=== PATIENT | male | born 1935 | race Caucasian/White ===

== ENCOUNTER → 2017-12-02 | Outpatient (CLI) | payer MEDICARE, OTHER ==
[~2017-12-02] MED LIST: INDO25 PO; LISHYD2025 PO; LOVA40; LOVA40 PO; MELO7.5 PO; METF500 PO; METO10 PO; OMEP20ER PO
[2017-12-05 14:52] LABS: Stool Occult Bld Immuno 1 Negative (NEGATIVE); Stool Occult Bld Immuno 2 Negative (NEGATIVE)
== END ==
LOC: OLS 23:00
PROVIDERS: Internal Medicine Gastroenterology
DX: K57.30 Diverticulosis of large intestine without perforation or abscess without bleeding (principal); Z86.010 Personal history of colon polyps
CPT/HCPCS: 82274

== ENCOUNTER 2017-12-27 14:35 | Emergency (ER) | payer MEDICARE, OTHER ==
[~2017-12-27] VITALS: Ht 177.8 cm; Wt 104.3 kg
[2017-12-27 15:20] LABS: BASOPHILS ABSOLUTE AUTO 0.14 K/mm3 (0.00-0.23); BASOPHILS PERCENT AUTO 1 % (0-2); EOSINOPHILS ABSOLUTE AUTO 0.22 K/mm3 (0.00-0.68); EOSINOPHILS PERCENT AUTO 2 % (0-6); Hematocrit 44.7 % (37.0-53.0); Hemoglobin 15.2 g/dL (13.5-17.5); IMMATURE GRAN ABSOLUTE AUTO 0.05 K/mm3 (0.00-0.10); IMMATURE GRAN PERCENT AUTO 0 % (0-1); LYMPHOCYTES PERCENT AUTO 25 % (21-46); MONOCYTES ABSOLUTE AUTO 1.02 K/mm3 (0.16-1.47); MONOCYTES PERCENT AUTO 8 % (4-13); Mean Corpuscular HGB 31.1 pg (26.0-34.0); Mean Corpuscular Volume 92 fL (80-100); Mean Platelet Volume 11.2 fL (9.1-12.4); NEUTROPHILS PERCENT AUTO 64 % (41-73); Platelet Count 235 K/mm3 (150-400); RDW Coefficient Variation 12.8 % (11.7-14.2); RDW Standard Deviation 43.3 fL (35.1-46.3); Red Blood Cell Count 4.88 M/mm3 (4.30-5.90); White Blood Cell Count 13.03 K/mm3 (4.00-11.30)
[2017-12-27 15:45] LABS: Alanine Aminotransfer (ALT/SGP 40 U/L (12-78); Albumin, Blood 3.7 g/dL (3.4-5.0); Albumin/Globulin Ratio 0.8 (0.8-1.8); Alk Phos 60 U/L (50-136); Anion Gap 8 mmol/L (6-16); Aspartate Aminotrans (AST/SGOT 16 U/L (12-37); Bilirubin, Total 0.5 mg/dL (0.1-1.0); Blood Urea Nitrogen 16 mg/dL (8-24); Bun/Creatinine Ratio 15.8 (12.0-20.0); CO2, Blood 30 mmol/L (21-32); Calcium, Blood 9.2 mg/dL (8.5-10.1); Chloride, Blood 102 mmol/L (98-108); Creatinine, Blood 1.01 mg/dL (0.60-1.20); Globulin, Blood 4.4 g/dL (2.2-4.0); Glomerular Filtration Rate >60 (60-); Glucose, Blood 176 mg/dL (70-99); Potassium, Blood 3.5 mmol/L (3.5-5.5); Sodium, Blood 140 mmol/L (136-145); Total Protein, Blood 8.1 g/dL (6.4-8.2)
== END 2017-12-27 16:28 | disposition home or self-care (01) ==
LOC: ER 14:35
PROVIDERS: Emergency Medicine
DX: S01.01XA Laceration without foreign body of scalp, initial encounter (principal); S29.9XXA Unspecified injury of thorax, initial encounter; Z79.899 Other long term (current) drug therapy; Z79.84 Long term (current) use of oral hypoglycemic drugs; W11.XXXA Fall on and from ladder, initial encounter
CPT/HCPCS: 12002; 70450; 71046; 72125; 80053; 85025; 93005; 93010; 99284

== ENCOUNTER 2018-01-03 09:49 | Emergency (ER) | payer MEDICARE, OTHER ==
[~2018-01-03] VITALS: Ht 177.8 cm; Wt 104.3 kg
== END 2018-01-03 10:33 | disposition home or self-care (01) ==
LOC: ER 09:49
DX: S01.01XD Laceration without foreign body of scalp, subsequent encounter (principal); Z79.899 Other long term (current) drug therapy; Z79.84 Long term (current) use of oral hypoglycemic drugs; F17.200 Nicotine dependence, unspecified, uncomplicated; W11.XXXD Fall on and from ladder, subsequent encounter
CPT/HCPCS: 99281

== ENCOUNTER 2019-02-25 13:25 | Day surgery (SDC) | payer MEDICARE, OTHER ==
--- NOTE | 2019-02-25 14:41 | NUR ---
PT ADMITTED TO [facility] FOR [facility]. AGREES WITH PLANNED PROCEDURE.
--- NOTE | 2019-02-25 14:50 | NUR ---
RETURNED TO [facility]. DENIES ANY NEW PAIN, NUMBNESS OR TINGLING. BANDAID TO BACK D/I.
--- NOTE | 2019-02-25 14:59 | NUR ---
WRITTEN AND VERBAL D/C INSTUCTIONS GIVENTO PT WITH STATED UNDERSTANDING.
--- NOTE | 2019-02-25 15:06 | NUR ---
DISREGARD PREVIOUS NOTE BY THIS RN, DOCUMENTED ON WRONG PATIENT.
--- NOTE | 2019-02-25 15:07 | NUR ---
PLEASE DISRGARD NOTES WRITTEN AT 1450 AND 1459, DOCUMENTED ON WRONG PATIENT.
--- NOTE | 2019-02-25 15:20 | NUR ---
PT TO STEP. DENIES ANY NEW PAIN OR NUMBNESS OR TINGLING.
--- NOTE | 2019-02-25 15:25 | NUR ---
WRITTEN AND VERBAL D/X INSTUCTIONS GIVEN TO PT AND WITH STATED UNDERSTANDING.
== END 2019-02-25 22:37 | disposition home or self-care (01) ==
LOC: ORSCMMR 13:25 → ORD 15:15 → ORSCMMR 22:37
PROVIDERS: Orthopaedic Surgery
PROC: 3E0R33Z Introduction of Anti-inflammatory into Spinal Canal, Percutaneous Approach (ICD-10-PCS; principal; 2019-02-25 15:15)
DX: M51.16 Intervertebral disc disorders with radiculopathy, lumbar region (principal); M48.062 Spinal stenosis, lumbar region with neurogenic claudication; I10 Essential (primary) hypertension; E11.9 Type 2 diabetes mellitus without complications; E78.00 Pure hypercholesterolemia, unspecified; F17.210 Nicotine dependence, cigarettes, uncomplicated; Z79.84 Long term (current) use of oral hypoglycemic drugs; Z79.899 Other long term (current) drug therapy
CPT/HCPCS: J1040

== ENCOUNTER 2019-05-23 12:24 | Day surgery (SDC) | payer MEDICARE, OTHER ==
[~2019-05-23] VITALS: Ht 177.8 cm; Wt 101.7 kg
[2019-05-23] MEDS ORDERED: AMLO5 (13:02)
--- NOTE | 2019-05-23 14:03 | NUR ---
05/23/19 1403 Trae Armenta LATE ENTRY FOR 1325 DR THORPE NOTIFED OF PT'S ELEVATED BLOOD PRESSURES. SEE VITAL SIGN RECORDS FOR READINGS. DR MALLOY ORDERED 5MG AMLODIPINE TAB PO NOW FOR ELEVATED BLOOD PRESSURE.
== END 2019-05-23 14:37 | disposition home or self-care (01) ==
LOC: ORSCSDS 12:24 → ORD 05-24 10:15
PROVIDERS: Orthopaedic Surgery
PROC: 3E0R33Z Introduction of Anti-inflammatory into Spinal Canal, Percutaneous Approach (ICD-10-PCS; principal; 2019-05-23 13:45)
DX: M54.16 Radiculopathy, lumbar region (principal); M48.061 Spinal stenosis, lumbar region without neurogenic claudication; I10 Essential (primary) hypertension; J44.9 Chronic obstructive pulmonary disease, unspecified; E11.9 Type 2 diabetes mellitus without complications; I25.10 Atherosclerotic heart disease of native coronary artery without angina pectoris; K21.9 Gastro-esophageal reflux disease without esophagitis; Z79.84 Long term (current) use of oral hypoglycemic drugs; Z79.899 Other long term (current) drug therapy; F17.210 Nicotine dependence, cigarettes, uncomplicated
CPT/HCPCS: J1040

== ENCOUNTER → 2020-10-12 | Outpatient (CLI) | payer MEDICARE, OTHER ==
[~2020-10-12] MED LIST changes: +AMLO5
== END ==
LOC: PLD 10:58 → LAB SHORT 10:58
DX: M79.89 Other specified soft tissue disorders (principal)
CPT/HCPCS: 88304

== ENCOUNTER → 2021-08-08 | Outpatient (CLI) | payer MEDICARE, OTHER ==
[2021-08-09 13:49] LABS: Stool Occult Bld Immuno 1 Negative (NEGATIVE)
== END | disposition home or self-care (01) ==
LOC: LAB SHORT 11:42
PROVIDERS: Family Medicine
DX: R19.5 Other fecal abnormalities (principal)
CPT/HCPCS: G0328

== ENCOUNTER 2021-09-11 22:37 | Inpatient (IN) | payer MEDICARE, OTHER ==
[~2021-09-11] VITALS: Ht 177.8 cm; Wt 93.8 kg
[2021-09-11] MEDS ORDERED: LISI20 PO (22:49)
[2021-09-11] MEDS ORDERED: HYDRA25 PO (22:50)
[2021-09-11] MEDS ORDERED: ALLO100 PO (22:51)
[2021-09-11] MEDS ORDERED: GABA300 PO (22:51)
[2021-09-11 22:56] LABS: BASOPHILS ABSOLUTE AUTO 0.17 K/mm3 (0.00-0.23); BASOPHILS PERCENT AUTO 1 % (0-2); EOSINOPHILS ABSOLUTE AUTO 0.56 K/mm3 (0.00-0.68); EOSINOPHILS PERCENT AUTO 4 % (0-6); Hematocrit 45.1 % (37.0-53.0); Hemoglobin 15.1 g/dL (13.5-17.5); Mean Corpuscular HGB 30.5 pg (26.0-34.0); Mean Corpuscular HGB Conc 33.5 g/dL (31.5-36.5); Mean Corpuscular Volume 91 fL (80-100); Mean Platelet Volume 10.4 fL (9.1-12.4); Platelet Count 263 K/mm3 (150-400); RDW Coefficient Variation 13.9 % (11.7-14.2); RDW Standard Deviation 46.9 fL (35.1-46.3); Red Blood Cell Count 4.95 M/mm3 (4.30-5.90); White Blood Cell Count 14.36 K/mm3 (4.00-11.30)
[2021-09-11 22:57] LABS: IMMATURE GRAN ABSOLUTE AUTO 0.04 K/mm3 (0.00-0.10); IMMATURE GRAN PERCENT AUTO 0 % (0-1); LYMPHOCYTES ABSOLUTE AUTO 6.36 K/mm3 (0.84-5.20); LYMPHOCYTES PERCENT AUTO 44 % (21-46); MONOCYTES ABSOLUTE AUTO 1.15 K/mm3 (0.16-1.47); MONOCYTES PERCENT AUTO 8 % (4-13); NEUTROPHILS ABSOLUTE AUTO 6.08 K/mm3 (1.96-9.15); NEUTROPHILS PERCENT AUTO 42 % (41-73)
[2021-09-11 23:11] LABS: International Normalized Ratio 0.96; Prothrombin Time Results 10.1 Sec (9.7-11.5)
[2021-09-11 23:22] LABS: Alanine Aminotransfer (ALT/SGP 38 U/L (12-78); Albumin, Blood 3.7 g/dL (3.4-5.0); Albumin/Globulin Ratio 0.9 (0.8-1.8); Alk Phos 58 U/L (50-136); Anion Gap 6 mmol/L (6-16); Aspartate Aminotrans (AST/SGOT 23 U/L (12-37); Bilirubin, Total 0.5 mg/dL (0.1-1.0); Blood Urea Nitrogen 14 mg/dL (8-24); CO2, Blood 30 mmol/L (21-32); Calcium, Blood 9.4 mg/dL (8.5-10.1); Chloride, Blood 103 mmol/L (98-108); Globulin, Blood 4.1 g/dL (2.2-4.0); Glomerular Filtration Rate >60 (60-); Glucose, Blood 143 mg/dL (70-99); Magnesium, Blood 2.1 mg/dL (1.6-2.4); Potassium, Blood 3.7 mmol/L (3.5-5.5); Sodium, Blood 139 mmol/L (136-145); Total Protein, Blood 7.8 g/dL (6.4-8.2); Troponin I <0.015 ng/mL (0.000-0.040)
[2021-09-12 00:37] LABS: SARS-Cov-2 (COVID-19) PCR, MMC NEGATIVE (NEGATIVE)
[2021-09-12 00:47] LABS: CHOL/HDL RATIO 7.6; Cholesterol 235 mg/dL (50-200); HDL Cholesterol 31 mg/dL (>39); LDL/HDL RATIO Unable to Calculate; Low Density Lipoprotein Chol Unable to Calculate mg/dL (0-110); Triglycerides 491 mg/dL (30-160); Very Low Density Lipoprot Chol Unable to Calculate mg/dL (6-32)
--- NOTE | 2021-09-12 01:40 | NUR ---
ICU ADMISSION: PT ARRIVES ADMIT FROM THE ED. PER PREVIOUS RN: PT HAD BEEN HAVING GENERALIZED CP x1WK. TONIGHT WHILE @ REST, CP BECAME WORSE & HE HAD SOME LIGHTHEADEDNESS. UPON ARRIVAL PT WAS HYPTERNSIVE W/ STERNAL CP 8/10. GIVEN BRILINTA, & 325 ASA. HEPARIN & NITRO gtt STARTED IN ER. UPON ARRIVAL TO ICU, PT ABLE TO SPEAK IN FULL SENTENCES, LS CLEAR T/O, 98% ON RA. HR 60s, NSR W/ INTERMITTENT MULTIFOCAL PVCs. PT DENIES ANY CP. NITRO 15mcg/min, HEPARIN 15u/kg/hr. PLAN FOR ECHO & CARDIOLOGY CONSULT IN THE AM.
--- NOTE | 2021-09-12 04:00 | NUR ---
PT CONTINUES TO DENY RETURN OF HIS CP. GTT RATES UNCHANGED. HR 58-60, NSR. SBP STABLE. 96% ON RA. PT UNABLE TO SLEEP; LIGHTS DIMMED, DOOR CLOSED, PT ENCOURAGED TO TRY TO REST. CALL LIGHT W/ IN REACH.
[2021-09-12 04:28] LABS: Hematocrit 40.3 % (37.0-53.0); Hemoglobin 13.2 g/dL (13.5-17.5); Mean Corpuscular HGB 30.1 pg (26.0-34.0); Mean Corpuscular HGB Conc 32.8 g/dL (31.5-36.5); Mean Corpuscular Volume 92 fL (80-100); Mean Platelet Volume 10.7 fL (9.1-12.4); Platelet Count 223 K/mm3 (150-400); RDW Standard Deviation 47.7 fL (35.1-46.3); Red Blood Cell Count 4.39 M/mm3 (4.30-5.90); White Blood Cell Count 12.39 K/mm3 (4.00-11.30)
[2021-09-12 04:58] LABS: Anion Gap 5 mmol/L (6-16); Blood Urea Nitrogen 12 mg/dL (8-24); Bun/Creatinine Ratio 12.3 (12.0-20.0); CO2, Blood 27 mmol/L (21-32); Calcium, Blood 8.6 mg/dL (8.5-10.1); Chloride, Blood 106 mmol/L (98-108); Creatinine, Blood 0.98 mg/dL (0.60-1.20); Glomerular Filtration Rate >60 (60-); Glucose, Blood 112 mg/dL (70-99); Sodium, Blood 138 mmol/L (136-145)
--- NOTE | 2021-09-12 05:57 | NUR ---
UPDATE: CRITICAL PTT. CALLED PHARMACIST TO DISCUSS CRITICAL PTT OF >139. LAB WAS DRAWN BEFORE THE SCHEDULED TIME & PHARMACIST BELIEVES THE RESULTS TO BE INCORRECT. NEW ORDERS PLACED TO HAVE PTT REDRAWN. MOP HANDLE ASSEMBLER MADE AWARE. LAB CALLED TO COME DRAW BLOOD SHORTLY
--- NOTE | 2021-09-12 06:09 | NUR ---
SHIFT SUMMARY: NO ACUTE CHANGES OVERNIGHT. PT WAS UNABLE TO SLEEP MUCH, IF AT ALL. CP IS STILL RESOLVED AFTER NITRO GTT. HR 60s, SINUS W/ INTERMITTENT MULTIFOCAL PVCs. SBP low 100s. 98% ON RA. PT ABLE TO USE THE URINAL INDEPENDENTLY. TROPONIN INITIALLY NEG, NOW TRENDING UPWARDS @ 2.7. PLAN FOR CARDIOLOGY CONSULT THIS MORNING. ATTEMPTED TO CALL ANSWERING SERVICE SEVERAL TIMES W/ BUSY SIGNAL. WILL DISCUSS THIS W/ AM RN TO CALL CONSULT.
[2021-09-12 06:50] LABS: BASOPHILS ABSOLUTE MAN 0.12 K/mm3 (0.00-0.23); BASOPHILS PERCENT MAN 1 % (0-2); EOSINOPHILS ABSOLUTE MAN 0.24 K/mm3 (0.00-0.68); EOSINOPHILS PERCENT MAN 2 % (0-6); LYMPHOCYTES ABSOLUTE MAN 5.82 K/mm3 (0.84-5.20); LYMPHOCYTES PERCENT MAN 47 % (21-46); MONOCYTES ABSOLUTE MAN 0.86 K/mm3 (0.16-1.47); MONOCYTES PERCENT MAN 7 % (4-13); NEUTROPHILS ABSOLUTE MAN 5.32 K/mm3 (1.96-9.15); SEG NEUTROPHILS PERCENT MAN 43 % (41-73); TOTAL CELLS COUNTED 100
--- NOTE | 2021-09-12 07:13 | NUR ---
ASSUMED CARE: PT LAYING IN BED, AWAKE, TALKING TO STAFF. ALERT AND ORIENTED, TALKING TO STAFF. DENIES CHEST PAIN ON 15MCG OF NITRO. HEPARIN GTT RUNNING, RATE VERIFIED WITH NIGHT RN. MESSAGE LEFT WITH A.S. FOR DR LIPSCOMB. PT ASKED FOR ASSISTANCE WITH PHONE TO CALL HIS . NO FURTHER NEEDS AT THIS TIME.
--- NOTE | 2021-09-12 07:32 | NUR ---
CALL TO NURSING DOUBLE BOTTOM DRIVER TO MAKE THEM AWARE THAT PT HAS ECHO ORDERED SO THAT ONCALL TECH CAN BE NOTIFIED.
--- NOTE | 2021-09-12 08:37 | NUR ---
DR PEREZ CAME TO SEE PT AND PLANS FOR FIXED ASSETS ACCOUNTANT EARLY AFTERNOON. CALL TO PT'S TO UPDATE HER ON PLAN. PT CONTINUES TO DENY CHEST PAIN. PT DENIES NEEDS OR CONCERNS AT THIS TIME.
--- NOTE | 2021-09-12 09:32 | NUR ---
COVID SWAB COMPLETED AND SENT TO LAB FOR ANALYSIS. TELEVISION PRODUCTION TECHNICIAN AT BEDSIDE AT THIS TIME.
--- NOTE | 2021-09-12 09:57 | NUR ---
Echocardiogram completed.
[2021-09-12 10:03] LABS: SARS-Cov-2 (COVID-19) PCR, MMC NEGATIVE (NEGATIVE)
--- NOTE | 2021-09-12 12:30 | NUR ---
PT TAKEN TO [facility]ART CENTER VIA BED BY MEDICAL NUMERICAL CONTROL OPERATOR STAFF
--- NOTE | 2021-09-12 14:13 | NUR ---
PT RETURNED FROM [facility] SERVICES LIBRARIAN WITH TR BAND IN PLACE, 20CC IN PLACE. SLIGHT HEMATOMA TO LEFT OF TR BAND THAT HEART CENTER STAFF MARKED AND NOTED. 2CC REMOVED DUE TO PT HAVING PURPLE FINGERS AND NO READ ON BIOX. PT NOW AT 95% ON RA. CALL TO PT'S TO GIVE HER AN UPDATE. NO ACUTE NEEDS AT THIS TIME.
--- NOTE | 2021-09-12 18:06 | NUR ---
SHIFT SUMMARY: PT'S TR BAND IS DEFLATED AND REMAINS ON FOR 1 MORE HOUR. SMALL AMOUNT OF BLEEDING AND BRUISING AT PUNCTURE SITE BUT HEMATOMA HAS NOT GROWN SINCE INITIAL PRESENTATION. PT DENIES CHEST PAIN. HAS BEEN CALLED WITH UPDATE. POSSIBLE DC TOMORROW IF ALL GOES WELL THIS EVENING. NO ACUTE NEEDS OR CONCERNS AT THIS TIME.
--- NOTE | 2021-09-12 18:46 | NUR ---
TR BAND REMOVED WITH SOME BRUISING AND SCANT BLEEDING FROM SITE. PT DENIES CHEST PAIN OR FURTHER NEEDS AT THIS TIME.
--- NOTE | 2021-09-12 20:00 | NUR ---
ASSUMING PT CARE: PT RESTING IN BED, WATCHING TV. A&O, APPROPRIATELY INTERACTIVE & PLEASANT. PT IS S/P CREDIT REVIEW ANALYST STENT PLACEMENT TO RCA. R RADIAL SITE IS NONTENDER, DRESSED W/ CLEAR DRESSING. SM AMT OF BLOOD LEAKING. APPEARS TO HAVE SOME BRUISING AROUND THE SITE, HOWEVER IT IS UNCHANGED SINCE HIS ARRIVAL FROM CREDIT REVIEW ANALYST PER DAY SHIFT RN. DISTAL CSM INTACT. ++RADIAL PULSE. PT DENIES RETURN OF HIS CP SINCE ARRIVAL TO ICU. HR mid 50s-60s, SINUS RHYTHM. PLAN FOR POSSIBLE DC HOME TOMORROW.
--- NOTE | 2021-09-13 | NUR ---
PT RESTING W/ EYES CLOSED, RR EVEN & UNLABORED. HR SINUS WALESKA IN THE MID 50s, SBP STABLE. PT AWAKES CONFUSED TO NURSING CARE BUT IS EASILY REORIENTED.
--- NOTE | 2021-09-13 04:00 | NUR ---
PT RESTING SOUDNLY W/ EYES CLOSED. WHILE ASLEEP PT NOTED TO BECOME MILDLY BRADYCARDIC IN THE MID 40s; HE CONTINUES TO BE IN A SINUS RHYTHM. PERIODS OF SLEEP APNEA W/ HEAVY SNORING, @ TIMES SATS DEC TO THE 70s & QUICKLY RETURN TO 90%. 3L/min PLACED FOR SUPPORTIVE CARE WHILE ASLEEP.
--- NOTE | 2021-09-13 09:33 | NUR ---
AM NOTE... ASSUMED CARE OF PT AT 0700, PT IS A&Ox4 AND VERY POINT LAY IRA. PT IS S/P STENT PLACEMENT WITH A RIGHT RADIAL SITE. THE SITE HAS NO SWELLING BLEEDING OR HEMATOMA NOTED. PT DENIES ANY CHEST PAIN. L/S CLEAR IN THE UPPER LOBES DIM IN THE LOWER. PT IS ON RA WITH O2 SATS >90%. PT IS IN SR/SB IN THE 50'S-60'S. BP IS HYPERTENSIVE THIS AM WITH SBPs IN THE 160'S-190'S, PT WAS RE-STARTED ON HIS HOME HTN MEDICATIONS. NO EDEMA NOTED ON ASSESSMENT. BT PRESENT AND HYPOACTIVE, ABD IS SOFT AND NONTENDER TO PALP. PT IS VOIDING USING THE URINAL. DR. PEREZ AT THE BEDSIDE THIS AM FOR ASSESSMENT, PER CARDIOLOGY PT IS OKAY TO D/C HOME, THIS RN CALLED [facility] PROVIDER TO NOTIFY THEM OF THE CLEARENCE TO D/C HOME FROM CARDIOLOGY. CALL LIGHT IN REACH WILL CONTINUE TO MONITOR.
[2021-09-13] MEDS ORDERED: ASPI81CH PO (13:03)
[2021-09-13] MEDS ORDERED: ATOR80 PO (13:04)
[2021-09-13] MEDS ORDERED: Plavix75 MG PO (13:05)
[2021-09-13] MEDS ORDERED: GEMF600 PO (13:06)
--- NOTE | 2021-09-13 13:33 | NUR ---
Per Dr. Peoples discharge appropriate for today. Spoke with patient and he is aware of discharge and does not oppose. Patient's neighbor (friend of family) is providing transportation to their home. Patient states he does not need assistance with walking and does not require any DME at this time. Patient states he understands his medications and schedule and has a medication organizer that his takes care of. Patient knows to contact his PCP if he has any questions regarding medication management. Patient states he has a safe home environment and his helps him where needed and they have a family friend (Joey) who assists when needed. Pt is still able to drive. No barriers to discharge or safety concerns identified.
--- NOTE | 2021-09-13 13:39 | NUR ---
PT D/C HOME... PT D/C HOME, ALL HIS BELONGINGS PACKED AND SENT WITH THE PT. NEW MEDICATION INFORMATION/EDUCATION WAS PROVIDED VERBALLY AND WRITTEN TO THE PT. PT DENIES ANY CHEST PAIN/PRESSURE AT THIS TIME. PT WAS ESCORTED TO THE DOOR VIA W/C. THE PT'S NEW MEDICATIONS WERE SENT TO THE PHARMACY OF HIS CHOICE.
== END 2021-09-13 13:15 | disposition home or self-care (01) | DRG 247 ==
LOC: ER 22:37 → ICUW 09-12 00:27 → ICUE 09-12 00:27
PROVIDERS: Emergency Medicine; Internal Medicine Cardiovascular Disease; ADMIT Family Medicine
PROC: 027035Z Dilation of Coronary Artery, One Artery with Two Drug-eluting Intraluminal Devices, Percutaneous Approach (ICD-10-PCS; principal; 2021-09-12)
PROC: B2111ZZ Fluoroscopy of Multiple Coronary Arteries using Low Osmolar Contrast (ICD-10-PCS; 2021-09-12)
DX: I21.4 Non-ST elevation (NSTEMI) myocardial infarction (principal); I16.1 Hypertensive emergency; E11.9 Type 2 diabetes mellitus without complications; E78.5 Hyperlipidemia, unspecified; I10 Essential (primary) hypertension; Z20.822 Contact with and (suspected) exposure to COVID-19; E78.1 Pure hyperglyceridemia; R00.1 Bradycardia, unspecified; Z90.49 Acquired absence of other specified parts of digestive tract; Z98.890 Other specified postprocedural states; Z90.5 Acquired absence of kidney; Z79.899 Other long term (current) drug therapy; D72.828 Other elevated white blood cell count; F17.210 Nicotine dependence, cigarettes, uncomplicated; E66.9 Obesity, unspecified; Z68.29 Body mass index [BMI] 29.0-29.9, adult
CPT/HCPCS: 36415; 71045; 76937; 80048; 80053; 80061; 82947; 83036; 83735; 83880; 84443; 84484; 85025; 85347; 85610; 85730; 93005; 93010; 93454; 96365; 96368; 96375; 96376; 99152; 99153; 99285-25; A9270; C1725; C1769; C1874; C1887; C1894; C8929; C9600; J0461; J1644; J2001; J2250; J2405; J3010; J7030; J7040; J7050; Q9957; Q9967; U0004

== ENCOUNTER 2021-11-23 13:25 | Inpatient (IN) | payer MEDICARE ==
[~2021-11-23] VITALS: Ht 182.9 cm; Wt 85.0 kg
[~2021-11-23 13:25] MED LIST changes: +ALLO100 PO; +ASPI81CH PO; +GABA300 PO; +HYDRA25 PO; +LISI20 PO; +Plavix75 MG PO
[2021-11-23 15:02] LABS: BASOPHILS ABSOLUTE AUTO 0.19 K/mm3 (0.00-0.23); BASOPHILS PERCENT AUTO 1 % (0-2); EOSINOPHILS ABSOLUTE AUTO 0.25 K/mm3 (0.00-0.68); EOSINOPHILS PERCENT AUTO 1 % (0-6); Hematocrit 45.4 % (37.0-53.0); Hemoglobin 15.2 g/dL (13.5-17.5); IMMATURE GRAN ABSOLUTE AUTO 0.08 K/mm3 (0.00-0.10); IMMATURE GRAN PERCENT AUTO 0 % (0-1); LYMPHOCYTES ABSOLUTE AUTO 3.87 K/mm3 (0.84-5.20); LYMPHOCYTES PERCENT AUTO 21 % (21-46); MONOCYTES ABSOLUTE AUTO 1.13 K/mm3 (0.16-1.47); MONOCYTES PERCENT AUTO 6 % (4-13); Mean Corpuscular HGB Conc 33.5 g/dL (31.5-36.5); Mean Corpuscular Volume 90 fL (80-100); Mean Platelet Volume 10.5 fL (9.1-12.4); NEUTROPHILS ABSOLUTE AUTO 12.75 K/mm3 (1.96-9.15); NEUTROPHILS PERCENT AUTO 70 % (41-73); Platelet Count 360 K/mm3 (150-400); RDW Coefficient Variation 13.2 % (11.7-14.2); RDW Standard Deviation 43.2 fL (35.1-46.3); Red Blood Cell Count 5.07 M/mm3 (4.30-5.90); White Blood Cell Count 18.27 K/mm3 (4.00-11.30)
[2021-11-23 15:24] LABS: Albumin, Blood 3.7 g/dL (3.4-5.0); Albumin/Globulin Ratio 0.9 (0.8-1.8); Bilirubin, Total 0.8 mg/dL (0.1-1.0); Bun/Creatinine Ratio 13.3 (12.0-20.0); Calcium, Blood 10.9 mg/dL (8.5-10.1); Creatinine, Blood 1.35 mg/dL (0.60-1.20); Globulin, Blood 4.2 g/dL (2.2-4.0); Potassium, Blood 3.4 mmol/L (3.5-5.5); Total Protein, Blood 7.9 g/dL (6.4-8.2)
[2021-11-23] MEDS ORDERED: ZESTRIL40 M1 PO (17:13)
[2021-11-23] MEDS ORDERED: HYDCHL25 PO (17:14)
[2021-11-23] MEDS ORDERED: AMLODIPINE BESYL5 MG PO (17:14)
[2021-11-23] MEDS ORDERED: OMEP20ER PO (17:15)
[2021-11-23] MEDS ORDERED: ALLO100 PO (17:15)
[2021-11-23] MEDS ORDERED: GABA300 PO (17:16)
[2021-11-23] MEDS ORDERED: CLOP75 PO (17:16)
[2021-11-23] MEDS ORDERED: Aspir 8181 MG PO (17:16)
[2021-11-23] MEDS ORDERED: MOBIC15 MG PO (17:16)
[2021-11-23] MEDS ORDERED: METF500 PO (17:16)
[2021-11-23] MEDS ORDERED: PANT40 PO (17:17)
--- NOTE | 2021-11-23 23:40 | NUR ---
ADMIT NOTE HANDOFF RECEIVED FROM STORAGE BATTERY INSPECTOR AND TESTER VAMSI. PT ARRIVED TO FLOOR VIA GURNEY. PT PUT ON LOW INTERMITTENT SUCTION THROUGH NG TUBE PLACED IN ER. PERSONAL POSSESSIONS WITH PT. TELEMETRY IN PLACE. IV FLUIDS INFUSING ORDERED. 'S HARDCOPY ORDERS REVIEWED BY TWO RN'S. CALL BUTTON WITHIN REACH. PT ORIENTED TO UNIT.
--- NOTE | 2021-11-24 04:30 | NUR ---
SHIFT SUMMARY ADMITTED THIS SHIFT FOR SBO. FULL CODE. NG TUBE IN PLACE AND DRAINING DARK GREEN SUBSTANCE. TELEMETRY: NSR W/PAC'S @ 65 BPM. HE HAS NO N/V SINCE ARRIVING ON THIS FLOOR. HE ASKS CONTINUOUSLY TO HAVE HIS NG TUBE REMOVED, BUT HE CAN BE REDIRECTED AND IS QUITE PLEASANT. SURGICAL & AND GI CONSULTS HAVE BEEN CONTACTED.
[2021-11-24 04:54] LABS: BASOPHILS ABSOLUTE AUTO 0.16 K/mm3 (0.00-0.23); BASOPHILS PERCENT AUTO 1 % (0-2); EOSINOPHILS ABSOLUTE AUTO 0.36 K/mm3 (0.00-0.68); EOSINOPHILS PERCENT AUTO 3 % (0-6); Hematocrit 40.6 % (37.0-53.0); Hemoglobin 13.2 g/dL (13.5-17.5); IMMATURE GRAN ABSOLUTE AUTO 0.05 K/mm3 (0.00-0.10); IMMATURE GRAN PERCENT AUTO 0 % (0-1); LYMPHOCYTES ABSOLUTE AUTO 4.27 K/mm3 (0.84-5.20); LYMPHOCYTES PERCENT AUTO 30 % (21-46); MONOCYTES ABSOLUTE AUTO 1.18 K/mm3 (0.16-1.47); MONOCYTES PERCENT AUTO 8 % (4-13); Mean Corpuscular HGB Conc 32.5 g/dL (31.5-36.5); Mean Corpuscular Volume 92 fL (80-100); Mean Platelet Volume 10.1 fL (9.1-12.4); NEUTROPHILS ABSOLUTE AUTO 8.25 K/mm3 (1.96-9.15); NEUTROPHILS PERCENT AUTO 58 % (41-73); Platelet Count 283 K/mm3 (150-400); RDW Coefficient Variation 13.2 % (11.7-14.2); RDW Standard Deviation 45.4 fL (35.1-46.3); White Blood Cell Count 14.27 K/mm3 (4.00-11.30)
[2021-11-24 05:35] LABS: Albumin, Blood 3.2 g/dL (3.4-5.0); Anion Gap 9 mmol/L (6-16); Blood Urea Nitrogen 22 mg/dL (8-24); Bun/Creatinine Ratio 14.1 (12.0-20.0); CO2, Blood 33 mmol/L (21-32); Calcium, Blood 9.3 mg/dL (8.5-10.1); Chloride, Blood 103 mmol/L (98-108); Creatinine, Blood 1.56 mg/dL (0.60-1.20); Glomerular Filtration Rate 42 (60-); Glucose, Blood 95 mg/dL (70-99); Phosphorus, Blood 3.5 mg/dL (2.5-4.9); Sodium, Blood 145 mmol/L (136-145)
--- NOTE | 2021-11-24 11:43 | NUR ---
This morning before going up to visit Jose Guadalupe in his [facility] room 335, I called and spoke with his Mary. She states Jose Guadalupe is primarily independent in their two story home. The home has a steep drive way, and Jose Guadalupe walks up and down daily to check their mailbox. He does not use any dme, still drives, and his helps with medication management using a pill organizer. There is no preference on agency for Home Health Services. When I went to visit the patient in his room, he was alert and very pleasant. He told me he had a heart attack in September and since then has not been feeling well. He confirms hes independent in their home and does all the errands as his prefers not to leave their home due to covid concerns. He states if his is unable to help with discharge transportation, they have family, friends in the area that provide support if needed. He has never been to a SNF, but states his preference would be [facility]. I informed patient and his of the no visitor policy and gave them both my work cell phone for direct communication regarding care coordination or questions.
--- NOTE | 2021-11-24 17:08 | NUR ---
11/24/21 1708 Francis [facility] PATIENT DETERMINED TO BE ASA APPROPRIATE FOR PROPOFOL SEDATION PRIOR TO START OF PROCEDURE BY DR. VALENCIA Bite Block Placed. History, Chart, Medications and Allergies reviewed before start of procedure. MONITOR INTACT WITH CONTINUOUS PULSE OXIMETRY AND INTERMITTENT BP. 3-LEAD EKG REVIEWED WITH PHYSICIAN PRIOR TO START OF PROCEDURE. Patient to ENDO 1. O2 VIA N/C INTACT THROUGHOUT SEDATION/PROCEDURE.
--- NOTE | 2021-11-24 17:15 | NUR ---
SHIFT SUMMARY PT AXO, PLEASANT AND COOPERATIVE WITH CARE THOUGH [place]. PT HAD NG TUBE THOUGHOUT THE SHIFT WITH 250 ML OUT. VSS PT ON TELE, SINUS WALESKA AT START OF SHIFT. PT COMPLAINED OF THROAT PAIN AND WAS EAGER TO HAVE NG TUBE REMOVED. CHLORASEPIC SPRAY ADMINISTERED PER ORDERS. IV PATENT AND INFUSING PER EMAR. PT ALSO EAGER TO DRINK WATER. BED IN LOW POSITION, CALL LIGHT WITHIN REACH. PT AT DAY SURGERY AT THIS TIME.
--- NOTE | 2021-11-24 19:00 | NUR ---
PATIENT RETURNED FROM DAY SURGERY. REPLACEMENT OF NG TUBE WILL BE PASSED ON TO TOBACCO SCRAP SIFTER. THIS NURSE SPOKE WITH DR LOCKWOOD. SBAR GIVEN. DR LOCKWOOD STATES THAT SHE WILL SPEAK WITH ABOUT THIS PATIENT WHO IS AWAITING SURGICAL CONSULT AT THIS TIME WELL.
--- NOTE | 2021-11-25 00:59 | NUR ---
NG TUBE INSERTION W/ASSIST FROM PRIMARY RN ROHAN VASQUEZ. WILL NOTIFY IMAGING FOR XRAY TO VERIFY PLACEMENT. PT TOLERATED PROCEDURE WELL.
--- NOTE | 2021-11-25 06:30 | NUR ---
SHIFT SUMMARY: PT IS A/OX3-4. HE HAS REMAINED NPO D/T A BOWEL OBSTRUCTION. HIS NGT WAS REPLACED AROUND MN AND HAD MODERATE BILE OUTPUT. SURGICAL CONSULT IS IN. PT HAS NO C/O OF NAUSEA, DISTENTION, OR PAIN; BOWEL TONES ARE PRESENT. CALL LIGHT IS WITHIN REACH AND WE'LL CONTINUE TO MONITOR.
[2021-11-25 07:55] LABS: BASOPHILS ABSOLUTE AUTO 0.11 K/mm3 (0.00-0.23); BASOPHILS PERCENT AUTO 1 % (0-2); EOSINOPHILS ABSOLUTE AUTO 0.18 K/mm3 (0.00-0.68); EOSINOPHILS PERCENT AUTO 1 % (0-6); Hematocrit 38.3 % (37.0-53.0); Hemoglobin 12.4 g/dL (13.5-17.5); IMMATURE GRAN ABSOLUTE AUTO 0.06 K/mm3 (0.00-0.10); IMMATURE GRAN PERCENT AUTO 0 % (0-1); LYMPHOCYTES ABSOLUTE AUTO 3.56 K/mm3 (0.84-5.20); LYMPHOCYTES PERCENT AUTO 20 % (21-46); MONOCYTES ABSOLUTE AUTO 1.32 K/mm3 (0.16-1.47); MONOCYTES PERCENT AUTO 7 % (4-13); Mean Corpuscular HGB 29.6 pg (26.0-34.0); Mean Corpuscular HGB Conc 32.4 g/dL (31.5-36.5); Mean Corpuscular Volume 91 fL (80-100); Mean Platelet Volume 10.6 fL (9.1-12.4); NEUTROPHILS ABSOLUTE AUTO 13.03 K/mm3 (1.96-9.15); NEUTROPHILS PERCENT AUTO 71 % (41-73); Platelet Count 264 K/mm3 (150-400); RDW Coefficient Variation 13.3 % (11.7-14.2); RDW Standard Deviation 44.4 fL (35.1-46.3); Red Blood Cell Count 4.19 M/mm3 (4.30-5.90); White Blood Cell Count 18.26 K/mm3 (4.00-11.30)
[2021-11-25 08:32] LABS: Alanine Aminotransfer (ALT/SGP 46 U/L (12-78); Alk Phos 61 U/L (50-136); Anion Gap 8 mmol/L (6-16); Aspartate Aminotrans (AST/SGOT 31 U/L (12-37); Bilirubin, Total 1.3 mg/dL (0.1-1.0); Blood Urea Nitrogen 19 mg/dL (8-24); Bun/Creatinine Ratio 16.8 (12.0-20.0); CO2, Blood 26 mmol/L (21-32); Calcium, Blood 8.7 mg/dL (8.5-10.1); Chloride, Blood 107 mmol/L (98-108); Creatinine, Blood 1.13 mg/dL (0.60-1.20); Globulin, Blood 2.9 g/dL (2.2-4.0); Glomerular Filtration Rate >60 (60-); Glucose, Blood 85 mg/dL (70-99); Potassium, Blood 3.5 mmol/L (3.5-5.5); Sodium, Blood 141 mmol/L (136-145); Total Protein, Blood 5.9 g/dL (6.4-8.2)
[2021-11-25 09:22] LABS: Carcinoembryonic Antigen 2.1 ng/mL (0.0-3.0)
[2021-11-25 09:23] LABS: Cancer Antigen 19-9 <2.0 U/mL (2.0-37.0)
--- NOTE | 2021-11-25 18:33 | NUR ---
SHIFT SUMMARY- PT ALERT AND ORIENTED, CURRENTLY IN BED WITH THE CALL LIGHT IN REACH, BED AND CHAIR ALARMS SET TO PREVENT PT FROM ACCIDENTALLY PULLING OUT NG TUBE OR IV, PT OFTEN FORGETS TO CALL FOR ASSISTANCE TO TRANSFER FROM THE BED TO THE CHAIR AND BACK. PT HAS C/O PAIN IN HIS THROAT TODAY MEDICATED WITH CEPACOL SORE THROAT SPRAY, PT STATED IT WAS MUCH BETTER AFTER THAT. PT NG TUBE IN PLACE CONNECTED TO LOW INTERMITTENT SUCTION THAT IS PRODUCING COPIOUS AMOUNTS OF GREEN BILE, 2.5 L SINCE THE START OF THE SHIFT. PT HAD ONE C/O NAUSEA TODAY MEDICATED WITH ZOFRAN, PT STATED IT WAS WELL MANAGED. SPOKE TO DR ABARCA TODAY, THEY ARE CURRENTLY WAITING FOR THE BIOPSY RESULTS TO COME BACK, DEPENDING ON THE RESULTS THE PT MAY NEED TO BE TRANSFERED TO [facility] FOR A POSSIBLE SURGERY, ALL IS UNCERTAIN AT THIS TIME. PT ON TELE RUNNING NSR AT 63 THIS MORNING, HE DID WALESKA DOWN TO 47 AT ONE POINT TODAY WHILE TAKING A NAP, DR MOODY. PT CURRENTLY HAS NO S&S OF DISTRESS, WILL CTM AND PASS ON TO NIGHT RN IN BEDSIDE REPORT.
[2021-11-25] MEDS ORDERED: GEMF600 PO (18:39)
[2021-11-25] MEDS ORDERED: ATOR80 PO (18:40)
--- NOTE | 2021-11-25 19:00 | NUR ---
RECIEVED A CALL FROM TELE- PT HR WALESKA DOWN TO 42 THIS TIME. PT DENIES ANY CHEST PAIN OR PRESSURE OR SHORTNESS OF BREATH. CALLED DR ABARCA AND SPOKE TO HIM ABOUT THIS EVENT. HE IS AWARE. NO NEW ORDERS AT THIS TIME. CONTINUE CARDIAC MONITORING AND IF THE EVENTS CONTINUE THE PT MAY NEED A CARDIOLOGY CONSULT.
[2021-11-26 04:52] LABS: BASOPHILS ABSOLUTE AUTO 0.16 K/mm3 (0.00-0.23); BASOPHILS PERCENT AUTO 1 % (0-2); EOSINOPHILS ABSOLUTE AUTO 0.54 K/mm3 (0.00-0.68); EOSINOPHILS PERCENT AUTO 4 % (0-6); Hematocrit 38.4 % (37.0-53.0); Hemoglobin 12.6 g/dL (13.5-17.5); IMMATURE GRAN ABSOLUTE AUTO 0.05 K/mm3 (0.00-0.10); IMMATURE GRAN PERCENT AUTO 0 % (0-1); LYMPHOCYTES ABSOLUTE AUTO 3.09 K/mm3 (0.84-5.20); LYMPHOCYTES PERCENT AUTO 20 % (21-46); MONOCYTES ABSOLUTE AUTO 1.13 K/mm3 (0.16-1.47); MONOCYTES PERCENT AUTO 7 % (4-13); Mean Corpuscular HGB 30.1 pg (26.0-34.0); Mean Corpuscular HGB Conc 32.8 g/dL (31.5-36.5); Mean Corpuscular Volume 92 fL (80-100); Mean Platelet Volume 10.6 fL (9.1-12.4); NEUTROPHILS ABSOLUTE AUTO 10.37 K/mm3 (1.96-9.15); NEUTROPHILS PERCENT AUTO 68 % (41-73); Platelet Count 249 K/mm3 (150-400); RDW Coefficient Variation 13.3 % (11.7-14.2); Red Blood Cell Count 4.18 M/mm3 (4.30-5.90); White Blood Cell Count 15.34 K/mm3 (4.00-11.30)
[2021-11-26 05:20] LABS: Bun/Creatinine Ratio 17.2 (12.0-20.0); Calcium, Blood 8.8 mg/dL (8.5-10.1); Creatinine, Blood 1.34 mg/dL (0.60-1.20); Potassium, Blood 3.4 mmol/L (3.5-5.5)
--- NOTE | 2021-11-26 05:35 | NUR ---
SHIFT SUMMARY: PT IS A/OX3-4. NGT CONTINUES TO PUT OUT MODERATE OUTPUT. CANISTERS CHANGED AND OUTPUT HAS BEEN DOCUMENTED. PER TELE PT INTERMITTENTLY BRADYs DOWN IN THE 40s WHILE SLEEPING--MD IS AWARE. PT DID NOT HAVE ANY C/O OF PAIN OR NAUSEA. HE USES THE URINAL IN BED AND HAS BEEN USING CALL LIGHT APPROPRIATELY. BED ALARM IS SET D/T CONTINUOUS FLUIDS AND NGT TO LIWS.
--- NOTE | 2021-11-26 13:20 | NUR ---
I went to visit the patient in his [facility] room 335. He was alert and pleasant. He confirmed that clinical staff is awaiting his biopsy results. He says he calls his throughout the day as he is given updates.
[2021-11-27 04:09] LABS: BASOPHILS ABSOLUTE AUTO 0.17 K/mm3 (0.00-0.23); BASOPHILS PERCENT AUTO 1 % (0-2); EOSINOPHILS ABSOLUTE AUTO 0.35 K/mm3 (0.00-0.68); EOSINOPHILS PERCENT AUTO 3 % (0-6); Hematocrit 40.6 % (37.0-53.0); Hemoglobin 13.2 g/dL (13.5-17.5); IMMATURE GRAN ABSOLUTE AUTO 0.04 K/mm3 (0.00-0.10); IMMATURE GRAN PERCENT AUTO 0 % (0-1); LYMPHOCYTES ABSOLUTE AUTO 3.55 K/mm3 (0.84-5.20); LYMPHOCYTES PERCENT AUTO 26 % (21-46); MONOCYTES PERCENT AUTO 7 % (4-13); Mean Corpuscular HGB Conc 32.5 g/dL (31.5-36.5); Mean Corpuscular Volume 92 fL (80-100); Mean Platelet Volume 10.7 fL (9.1-12.4); NEUTROPHILS ABSOLUTE AUTO 8.59 K/mm3 (1.96-9.15); NEUTROPHILS PERCENT AUTO 63 % (41-73); Platelet Count 267 K/mm3 (150-400); RDW Coefficient Variation 13.2 % (11.7-14.2); RDW Standard Deviation 45.3 fL (35.1-46.3)
[2021-11-27 04:28] LABS: Bun/Creatinine Ratio 19.8 (12.0-20.0); Calcium, Blood 8.9 mg/dL (8.5-10.1); Creatinine, Blood 1.26 mg/dL (0.60-1.20); Potassium, Blood 3.4 mmol/L (3.5-5.5)
--- NOTE | 2021-11-27 05:37 | NUR ---
PT IS A/OX4. NGT OUTPUT REMAINS HIGH AVERAGE AROUND 2L THE LAST FEW SHIFTS. PT DOES NOT HAVE ANY C/O OF NAUSEA OR ABD PAIN. PT DID WALESKA DOWN A FEW TIMES THIS NOC SHIFT--MD IS AWARE. ACCUCHECKS WERE CHANGED TO Q6 D/T NPO STATUS. PT'S BED IS IN THE LOWEST POSITION AND CALL LIGHT IS WITHIN REACH.
--- NOTE | 2021-11-27 18:50 | NUR ---
SHIFT SUMMARY: NO ACUTE EVENTS. PICC RN UNABLE TO PLACE PICC D/T PT'S VASCULATURE, SO TPN CHANGED TO PPN. IS NPO BUT WAS GIVEN A FEW ICE CHIPS TO MOISTEN HIS MOUTH. NGT WITH BILIOUS OUTPUT, TO LIS. CBG WNL SO FAR, WILL NEED SSI ADDED. BS HYPOACTIVE, NO FLATUS. USING URINAL INDEPENDENTLY. DENIES NAUSEA AND PAIN. NO EVENTS ON TELEMETRY, SINUS WALESKA 48-58. AWAITING BIOPSY RESULTS.
[2021-11-28 04:58] LABS: BASOPHILS ABSOLUTE AUTO 0.15 K/mm3 (0.00-0.23); BASOPHILS PERCENT AUTO 1 % (0-2); EOSINOPHILS PERCENT AUTO 3 % (0-6); Hemoglobin 13.2 g/dL (13.5-17.5); IMMATURE GRAN ABSOLUTE AUTO 0.04 K/mm3 (0.00-0.10); IMMATURE GRAN PERCENT AUTO 0 % (0-1); LYMPHOCYTES ABSOLUTE AUTO 3.57 K/mm3 (0.84-5.20); LYMPHOCYTES PERCENT AUTO 27 % (21-46); MONOCYTES ABSOLUTE AUTO 1.02 K/mm3 (0.16-1.47); MONOCYTES PERCENT AUTO 8 % (4-13); Mean Corpuscular HGB 30.1 pg (26.0-34.0); Mean Corpuscular Volume 91 fL (80-100); Mean Platelet Volume 10.6 fL (9.1-12.4); NEUTROPHILS ABSOLUTE AUTO 8.27 K/mm3 (1.96-9.15); NEUTROPHILS PERCENT AUTO 62 % (41-73); Platelet Count 245 K/mm3 (150-400); RDW Coefficient Variation 13.3 % (11.7-14.2); RDW Standard Deviation 44.8 fL (35.1-46.3); Red Blood Cell Count 4.38 M/mm3 (4.30-5.90); White Blood Cell Count 13.45 K/mm3 (4.00-11.30)
[2021-11-28 05:27] LABS: Anion Gap 8 mmol/L (6-16); Blood Urea Nitrogen 25 mg/dL (8-24); Bun/Creatinine Ratio 24.3 (12.0-20.0); CO2, Blood 28 mmol/L (21-32); Calcium, Blood 8.8 mg/dL (8.5-10.1); Chloride, Blood 112 mmol/L (98-108); Creatinine, Blood 1.03 mg/dL (0.60-1.20); Glomerular Filtration Rate >60 (60-); Glucose, Blood 123 mg/dL (70-99); Magnesium, Blood 1.8 mg/dL (1.6-2.4); Phosphorus, Blood 2.3 mg/dL (2.5-4.9); Potassium, Blood 3.3 mmol/L (3.5-5.5); Sodium, Blood 148 mmol/L (136-145); Triglycerides 123 mg/dL (30-160)
--- NOTE | 2021-11-28 08:03 | NUR ---
C/O ABD PAIN AND VOM OVER MULTIPLE DA6YS. HARD OF HEARING A&O 3. WALESKA IN LOW TO MID 40'S WHEN AWAKE AND MID TO HIGH 30'S WHEN ASLEEP. PPN RUNNING AT 85ML/HR. NG TUBE SET TO INTERMITT SUCTION TO DRAIN DUE TO PROXIMAL SBO. OUTPUT FOR SHIFT WAS 1450ML DARK GREEN COLOR. 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 AWAITING BIOPSY RESULTS TO DECIDE ON TYPE OF SURGERY NEEDED.
--- NOTE | 2021-11-28 18:46 | NUR ---
Patient was alert and orient x4. His affect was pleasant and mood was congruent. Patient was NPO and had NG tube with 1400 ml of dk greenish output. Patient continued to be on PPN @85 ml/hr and ABX. Patient had no complaints of pain and no request of PRN meds. Cont to monitor
[2021-11-29 04:41] LABS: BASOPHILS ABSOLUTE AUTO 0.14 K/mm3 (0.00-0.23); BASOPHILS PERCENT AUTO 1 % (0-2); EOSINOPHILS PERCENT AUTO 3 % (0-6); Hematocrit 40.9 % (37.0-53.0); Hemoglobin 13.6 g/dL (13.5-17.5); IMMATURE GRAN ABSOLUTE AUTO 0.04 K/mm3 (0.00-0.10); IMMATURE GRAN PERCENT AUTO 0 % (0-1); LYMPHOCYTES ABSOLUTE AUTO 3.59 K/mm3 (0.84-5.20); LYMPHOCYTES PERCENT AUTO 27 % (21-46); MONOCYTES ABSOLUTE AUTO 0.93 K/mm3 (0.16-1.47); MONOCYTES PERCENT AUTO 7 % (4-13); Mean Corpuscular HGB 29.9 pg (26.0-34.0); Mean Corpuscular HGB Conc 33.3 g/dL (31.5-36.5); Mean Corpuscular Volume 90 fL (80-100); NEUTROPHILS ABSOLUTE AUTO 8.12 K/mm3 (1.96-9.15); NEUTROPHILS PERCENT AUTO 61 % (41-73); Platelet Count 271 K/mm3 (150-400); RDW Coefficient Variation 13.3 % (11.7-14.2); Red Blood Cell Count 4.55 M/mm3 (4.30-5.90); White Blood Cell Count 13.22 K/mm3 (4.00-11.30)
[2021-11-29 05:19] LABS: Albumin, Blood 2.9 g/dL (3.4-5.0); Anion Gap 8 mmol/L (6-16); Blood Urea Nitrogen 23 mg/dL (8-24); Bun/Creatinine Ratio 23.2 (12.0-20.0); CO2, Blood 29 mmol/L (21-32); Calcium, Blood 9.4 mg/dL (8.5-10.1); Chloride, Blood 108 mmol/L (98-108); Creatinine, Blood 0.99 mg/dL (0.60-1.20); Glomerular Filtration Rate >60 (60-); Glucose, Blood 122 mg/dL (70-99); Phosphorus, Blood 2.9 mg/dL (2.5-4.9); Potassium, Blood 3.4 mmol/L (3.5-5.5); Sodium, Blood 145 mmol/L (136-145)
--- NOTE | 2021-11-29 05:56 | NUR ---
PATIENT RESTING COMFORTABLY DURING SHIFT. MORNING K+ AT 3.4 . NO COMPLAINTS OF PAION OR ANY DISTRESS DURING ENTIRE SHIFT. NG OUTPUT AT 1600ML FOR PM SHIFT. STILL AWAITING BIOPSY RESULTS TO FIGURE OUT WHAT INTERVENTION IS BEST FOR HIS DUODENUM OBSTRUCTION.
--- NOTE | 2021-11-29 07:48 | NUR ---
RADHA neri handoff of patient care from RADHA White Patient was in bed, appeared to be sleeping and in no distress
--- NOTE | 2021-11-29 18:18 | NUR ---
Patient was alert and orient, appeared to be in good spirits even though recvd not so great news about his test results. Patient is awaiting for a bed to be transferred to possibly have surgery. Patient and are aware. Currently he continued to have NG tube with 1200 otput this shift. He was continent of bladder. No complaints of pain
[2021-11-30 04:54] LABS: BASOPHILS ABSOLUTE AUTO 0.15 K/mm3 (0.00-0.23); BASOPHILS PERCENT AUTO 1 % (0-2); EOSINOPHILS PERCENT AUTO 4 % (0-6); Hematocrit 42.9 % (37.0-53.0); Hemoglobin 14.4 g/dL (13.5-17.5); IMMATURE GRAN ABSOLUTE AUTO 0.04 K/mm3 (0.00-0.10); IMMATURE GRAN PERCENT AUTO 0 % (0-1); LYMPHOCYTES ABSOLUTE AUTO 3.66 K/mm3 (0.84-5.20); LYMPHOCYTES PERCENT AUTO 29 % (21-46); MONOCYTES ABSOLUTE AUTO 0.98 K/mm3 (0.16-1.47); MONOCYTES PERCENT AUTO 8 % (4-13); Mean Corpuscular HGB Conc 33.6 g/dL (31.5-36.5); Mean Corpuscular Volume 89 fL (80-100); NEUTROPHILS ABSOLUTE AUTO 7.11 K/mm3 (1.96-9.15); NEUTROPHILS PERCENT AUTO 57 % (41-73); Platelet Count 261 K/mm3 (150-400); RDW Coefficient Variation 13.3 % (11.7-14.2); RDW Standard Deviation 43.8 fL (35.1-46.3); White Blood Cell Count 12.44 K/mm3 (4.00-11.30)
[2021-11-30 05:12] LABS: Albumin, Blood 2.9 g/dL (3.4-5.0); Anion Gap 7 mmol/L (6-16); Blood Urea Nitrogen 28 mg/dL (8-24); Bun/Creatinine Ratio 26.9 (12.0-20.0); CO2, Blood 29 mmol/L (21-32); Calcium, Blood 9.6 mg/dL (8.5-10.1); Chloride, Blood 108 mmol/L (98-108); Creatinine, Blood 1.04 mg/dL (0.60-1.20); Glomerular Filtration Rate >60 (60-); Glucose, Blood 123 mg/dL (70-99); Magnesium, Blood 2.2 mg/dL (1.6-2.4); Phosphorus, Blood 3.3 mg/dL (2.5-4.9); Potassium, Blood 3.2 mmol/L (3.5-5.5); Sodium, Blood 144 mmol/L (136-145)
--- NOTE | 2021-11-30 06:42 | NUR ---
NG TUBE TO SUCTION DRAINED 700 GREEN BILIOUS OUTPUT. 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 IR CONSULT FOR TODAY PERTAINING TO PICC PLACEMENT. AWAITING A BED AT [facility] WHERE HE WILL GET A WHIPPLE PROCEDURE. NO COMPLIANTS OF PAIN AND NO NEW CONCERNS AT THIS TIME.
--- NOTE | 2021-11-30 09:58 | NUR ---
RN recvd handoff of patient care from RADHA White. Patient was in bed awake. He appeared in no distress
--- NOTE | 2021-11-30 19:25 | NUR ---
Patient was alert and orient, still awaiting on xfer to [facility] No mgmt issues. Had a shower, no complaints of pain
[2021-12-01 04:21] LABS: BASOPHILS ABSOLUTE AUTO 0.21 K/mm3 (0.00-0.23); BASOPHILS PERCENT AUTO 2 % (0-2); EOSINOPHILS ABSOLUTE AUTO 0.49 K/mm3 (0.00-0.68); EOSINOPHILS PERCENT AUTO 4 % (0-6); Hematocrit 40.3 % (37.0-53.0); Hemoglobin 13.4 g/dL (13.5-17.5); IMMATURE GRAN ABSOLUTE AUTO 0.03 K/mm3 (0.00-0.10); IMMATURE GRAN PERCENT AUTO 0 % (0-1); LYMPHOCYTES ABSOLUTE AUTO 3.48 K/mm3 (0.84-5.20); LYMPHOCYTES PERCENT AUTO 29 % (21-46); MONOCYTES ABSOLUTE AUTO 1.05 K/mm3 (0.16-1.47); MONOCYTES PERCENT AUTO 9 % (4-13); Mean Corpuscular HGB Conc 33.3 g/dL (31.5-36.5); Mean Corpuscular Volume 90 fL (80-100); Mean Platelet Volume 11.2 fL (9.1-12.4); NEUTROPHILS PERCENT AUTO 56 % (41-73); Platelet Count 245 K/mm3 (150-400); RDW Coefficient Variation 13.4 % (11.7-14.2); RDW Standard Deviation 44.9 fL (35.1-46.3); Red Blood Cell Count 4.46 M/mm3 (4.30-5.90); White Blood Cell Count 11.86 K/mm3 (4.00-11.30)
--- NOTE | 2021-12-01 04:28 | NUR ---
SHIFT SUMMARY ADMITTED FOR DUODENAL OBSTRUCTION. FULL CODE. 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 AWAITING A TRANSFER TO ANOTHER HOSPITAL FOR A WHIPPLE PROCEDURE. IV NUTRITION INFUSING @ 75 ML/HR. IV ANTIB RX ARE SCHEDULED. PICC LINE IN LUE. HE IS NPO. Q6 HR CHEMSTICKS. TELEMETRY: WALESKA @ 50 BPM. HE IS A&O X4. HE IS ON PLAVIX.
[2021-12-01 04:46] LABS: Albumin, Blood 2.5 g/dL (3.4-5.0); Anion Gap 6 mmol/L (6-16); Blood Urea Nitrogen 29 mg/dL (8-24); Bun/Creatinine Ratio 28.7 (12.0-20.0); CO2, Blood 28 mmol/L (21-32); Calcium, Blood 8.5 mg/dL (8.5-10.1); Chloride, Blood 110 mmol/L (98-108); Creatinine, Blood 1.01 mg/dL (0.60-1.20); Glomerular Filtration Rate >60 (60-); Glucose, Blood 108 mg/dL (70-99); Magnesium, Blood 2.1 mg/dL (1.6-2.4); Phosphorus, Blood 2.8 mg/dL (2.5-4.9); Potassium, Blood 3.2 mmol/L (3.5-5.5); Sodium, Blood 144 mmol/L (136-145)
--- NOTE | 2021-12-01 16:33 | NUR ---
CALLED REPORT TO RN AT [facility] PRIOR TO TRANSFER
--- NOTE | 2021-12-01 19:13 | NUR ---
pt transfered THE PT TRANSFERED VIA [facility] TO [facility]. REPORT GIVEN TO THE RN TOM, PT WAS A/OX4, APPEARED TO BE BREATHING EASILY ON RA. NG TUBE INPLACE AND SECURE. PICC LINE INPLACEAND SECURE. BELONGINGS RELEASED TO THE PATIENT
--- NOTE | 2021-12-08 14:26 | NUR ---
pt want to look at treament. follow upcall to . notified [facility] no hospice consult yet. She will sent it out today. they are frail and want local treatments at cancer center. [facility] childbirth and infant care teacher will set up consult.
== END 2021-12-01 18:33 | disposition short-term general hospital (02) | DRG 374 ==
LOC: ER 13:25 → MEDS 19:48 → ENPENDDIS 12-01 17:26 → MEDS 12-01 18:33
PROVIDERS: Family Medicine; Physician Assistant; Student in an Organized Health Care Education/Training Program; Surgery; ADMIT Family Medicine
PROC: 0DB98ZX Excision of Duodenum, Via Natural or Artificial Opening Endoscopic, Diagnostic (ICD-10-PCS; principal; 2021-11-24 17:15)
DX: C17.0 Malignant neoplasm of duodenum (principal); R65.11 Systemic inflammatory response syndrome (SIRS) of non-infectious origin with acute organ dysfunction; E44.0 Moderate protein-calorie malnutrition; N17.9 Acute kidney failure, unspecified; I10 Essential (primary) hypertension; Z90.49 Acquired absence of other specified parts of digestive tract; Z98.890 Other specified postprocedural states; Z79.899 Other long term (current) drug therapy; F17.210 Nicotine dependence, cigarettes, uncomplicated; E87.6 Hypokalemia; E11.42 Type 2 diabetes mellitus with diabetic polyneuropathy; Z20.822 Contact with and (suspected) exposure to COVID-19; Z90.5 Acquired absence of kidney; Z79.82 Long term (current) use of aspirin; Z79.84 Long term (current) use of oral hypoglycemic drugs; F12.10 Cannabis abuse, uncomplicated; E83.52 Hypercalcemia; D72.828 Other elevated white blood cell count; K21.00 Gastro-esophageal reflux disease with esophagitis, without bleeding; E78.00 Pure hypercholesterolemia, unspecified; M48.061 Spinal stenosis, lumbar region without neurogenic claudication; M10.9 Gout, unspecified; I25.2 Old myocardial infarction; Z68.29 Body mass index [BMI] 29.0-29.9, adult
CPT/HCPCS: 36415; 36569; 71045; 71260; 74176; 74177; 80048; 80053; 80069; 82378; 82947; 83615; 83690; 83735; 84100; 84478; 85025; 86301; 88305; 96374; 99285-25; A9270; C1751; C9113; J2405; J2543; J2704; J3411; J3480; J7030; J7060; J7120; Q9967

== ENCOUNTER 2021-12-19 07:11 | Emergency (ER) | payer MEDICARE ==
[~2021-12-19] VITALS: Ht 177.8 cm; Wt 88.5 kg
[~2021-12-19 07:11] MED LIST changes: +AMLODIPINE BESYL5 MG PO; +ATOR80 PO; +Aspir 8181 MG PO; +CLOP75 PO; +DOCU100 PO; +GEMF600 PO; +HYDCHL25 PO; +MOBIC15 MG PO; +PANT40 PO; +ZESTRIL40 M1 PO
[2021-12-19] MEDS ORDERED: PROM12.5S PR (09:43)
[2021-12-19] MEDS ORDERED: MIRALAX17 GM PO (09:43)
--- NOTE | 2021-12-19 09:50 | NUR ---
ER consult order received with update on current status and concerns received from pt's RN and Dr in ER. Previous EMR and Palliative care notes reviewed. Visit made to bedside with present. Pt is lying supine, hob sl elevated on gurney, very mike/red faced, breath holding and looking uncomfortable overall. He rubs his lower abd frequently and draws knees up. He was in hospital recently and dx with obstructing duodenal cancer. He was transferred to [facility] for gastroenterology intervention and stenting of duodenal obstruction and sent home on a liquid diet as a palliative measure. and pt return with pt's reported n/v, constipation and lower abd pain. He had not taken the ordered colace because they were afraid the capsules would clog the stent. Discussed processing and breaking down of pills in stomach prior to passing thru the stent. Pt has a f/u appointment with the GI interventionalist on Dec 31 and a new consult myra with Dr Landin/oncology this week. Pt is not at all sure he wants chemo and he declined a whipple procedure per Francois Kendall. Pt does want to hear what Dr Landin has to say and offer if anything. After much conversation, pt verbalizes understanding that with or without tx for cancer that he is nearing end of life at his age of nearly 87 and with other prev health hx of CAD, DM, diverticuloses, prev STEMI, lack of adequate PO intake to maintain nutritional status. He verbalizes understanding that most of what may be offered as interventions will be palliative and not curative. They felt confused by d/c instructions provided in [facility] and did not understand why all previous medications had been discontinued. felt they had intended on his PCP referring pt to Hospice but there was a gap in communication from [facility] to PCP. Oncology appointment and f/u myra with GI was done. I discussed advanced life support and resuscitation with pt. He states at this time he would not want CPR or to be intubated. His shares that she has a DNR at home also. Pt has been his 's CG. She is also elderly and frail appearing. POLST completed and will be scanned to Medical record once signed by . Pt and given some literature to help in burden vs benefit of treatment and interventions discussions and to generate questions for their providers. Hard Choices for [place] People and Considering Comfort Care booklets provided to take home and read. Pt was d/c'd home from ER at the end of my visit and came back in to report recommendations and information from Francois that he had obtained this am. Pt has SL zofran and phenergan suppositories, colace and miralax all sent to pharmacy prior to his d/c.
== END 2021-12-19 09:50 | disposition home or self-care (01) ==
LOC: ER 07:11
DX: K56.609 Unspecified intestinal obstruction, unspecified as to partial versus complete obstruction (principal); I10 Essential (primary) hypertension; E11.42 Type 2 diabetes mellitus with diabetic polyneuropathy; I25.2 Old myocardial infarction; F17.210 Nicotine dependence, cigarettes, uncomplicated
CPT/HCPCS: 74018; 99283-25